=== PATIENT | male | born 1995 | race Caucasian/White ===

== ENCOUNTER 2023-01-27 14:21 | Emergency (ER) | payer BC ==
[~2023-01-27] VITALS: Ht 167.6 cm; Wt 90.7 kg
[2023-01-27 14:24] VITALS: BP 164/96; PULSE 79; RESP 20; TEMP 98.1; O2SAT 98
[2023-01-27] MEDS ORDERED: LORazepam 2 MG/ML VIAL ONE ×2 (14:30→17:58)
[2023-01-27] MEDS: LORazepam 2 MG/ML VIAL IM ONE (14:32)
[2023-01-27 14:41] VITALS: TEMP 98.1
[2023-01-27] MEDS: ZIPRASIDONE MESYLATE 20 MG/ML VIAL IM ONE (15:28)
[2023-01-27] MEDS: LORazepam 2 MG/ML VIAL IM/IVP STA ×2 (16:56→20:19)
[2023-01-27 18:20] VITALS: O2SAT 99
[2023-01-27] MEDS ORDERED: NACL 0.9% 1,000 ML IV ONE (18:45)
[2023-01-27] MEDS: diphenhydrAMINE 50 MG/ML VIAL IM ONE ×2 (19:13→20:10)
[2023-01-27] MEDS: HALOPERIDOL IM 5 MG/ML VIAL IM ONE ×2 (19:15→20:10)
[2023-01-27 21:33] LABS: APPEARANCE,URINE CLEAR (CLEAR); BILIRUBIN,URINE NEGATIVE (NEGATIVE); BLOOD, URINE NEGATIVE (NEGATIVE); COLOR,URINE YELLOW (YELLOW); LEUKOCYTE ESTERASE ,URINE NEGATIVE (NEGATIVE); NITRITE, URINE NEGATIVE (NEGATIVE); PROTEIN,URINE NEGATIVE (NEGATIVE); UGLUCOSE NEGATIVE (NEGATIVE)
[2023-01-27 22:45] VITALS: BP 117/72; PULSE 94; RESP 18; O2SAT 95
== END 2023-01-27 23:10 | disposition home or self-care (01) ==
LOC: MED 14:21
DX: R41.0 Disorientation, unspecified (principal); G93.40 Encephalopathy, unspecified; F84.0 Autistic disorder; F79 Unspecified intellectual disabilities
CPT/HCPCS: 70450; 81003; 96372; 99291; J1200; J1630; J2060; J3486